=== PATIENT | male | born 1955 | race Caucasian/White ===

== ENCOUNTER 2017-04-28 15:35 | Emergency (ER) | payer OTHER ==
[2017-04-28] MEDS ORDERED: KETOROLAC TROMETHAMINE 60 MG/2 ML VIAL IM ONE (15:54)
[2017-04-28 15:55] VITALS: BP 140/80; PULSE 83; TEMP 98; BMI 33.5
[2017-04-28] MEDS ORDERED: KETOROLAC TROMETHAMINE 60 MG/2 ML VIAL ONE (15:58)
--- NOTE | 2017-04-28 16:42 | PDOC ---
History of Present Illness <Bette Rey - Last Filed: 04/28/17 16:40> - General History Source: Patient Exam Limitations: No Limitations - History of Present Illness Initial Comments: 04/28/17 16:45 The patient is a 61 year old male with a significant past medical history of diabetes, undetectable HEP-C, who presents to the ED s/p fall. Patient states he was walking on the sidewalk when he tripped and fell on his right side. Patient complains of sharp lower right sided rib pain. Patient states the pain is non-radiating. He states the pain worsens when taking a deep breath. He denies head trauma, back pain, neck pain. He denies fever, chills, nausea, vomiting, diarrhea. Patient smokes a pack of cigarettes a day. <Nehemiah Jeffrey - Last Filed: 04/28/17 16:46> - General Chief Complaint: Pain, Acute Stated Complaint: RIGHT RIB PAIN S/P FALL Time Seen by Provider: 04/28/17 15:48 Past History - Past Medical History Diabetes: Yes HTN: Yes Other medical history: HEPATITIS C - Psycho/Social/Smoking Cessation Hx Anxiety: No Suicidal Ideation: No Smoking History: Current every day smoker Have you smoked in the past 12 months: Yes Number of Cigarettes Smoked Daily: 20 Information on smoking cessation initiated: Yes 'Breaking Loose' booklet given: 04/28/17 Hx Alcohol Use: No Drug/Substance Use Hx: No Substance Use Type: None <Bette Rey - Last Filed: 04/28/17 16:40> <Nehemiah Jeffrey - Last Filed: 04/28/17 16:46> - Past Medical History Allergies/Adverse Reactions: Allergies Allergy/AdvReac Type Severity Reaction Status Date / Time No Known Allergies Allergy Unverified 04/28/17 15:37 Home Medications: Ambulatory Orders Insulin (Levemir) [Levemir Flexpen -] 46 units SQ DAILY 04/28/17 Insulin Aspart Prot/Insuln Asp [Novolog Mix 70-30 Vial] 4 units SQ TID 04/28/17 Lisinopril [Zestril] 40 mg PO DAILY 04/28/17 Metformin HCl [Glucophage] 1,000 mg PO BID 04/28/17 Review of Systems - Review of Systems Able to Perform ROS?: Yes Comments:: 04/28/17 16:45 GENERAL/CONSTITUTIONAL: No fever or chills. No weakness. HEAD, EYES, EARS, NOSE AND THROAT: No change in vision. No ear pain or discharge. No sore throat. CARDIOVASCULAR: No chest pain or shortness of breath. RESPIRATORY: No cough, wheezing, or hemoptysis. GASTROINTESTINAL: No nausea, vomiting, diarrhea or constipation. GENITOURINARY: No dysuria, frequency, or change in urination. MUSCULOSKELETAL: + right sided lower rib pain. No neck or back pain. SKIN: No rash NEUROLOGIC: No headache, vertigo, loss of consciousness, or change in strength/ sensation. ENDOCRINE: No increased thirst. No abnormal weight change. HEMATOLOGIC/LYMPHATIC: No anemia, easy bleeding, or history of blood clots. ALLERGIC/IMMUNOLOGIC: No hives or skin allergy. <Nehemiah Jeffrey - Last Filed: 04/28/17 16:46> *Physical Exam - Vital Signs Last Vital Signs Temp Pulse Resp BP Pulse Ox 98 F 83 18 140/80 97 04/28/17 15:36 04/28/17 15:36 04/28/17 15:36 04/28/17 15:36 04/28/17 15:36 <Bette Rey - Last Filed: 04/28/17 16:40> - Vital Signs Last Vital Signs Temp Pulse Resp BP Pulse Ox 98 F 83 18 140/80 97 04/28/17 15:36 04/28/17 15:36 04/28/17 15:36 04/28/17 15:36 04/28/17 15:36 - Physical Exam Comments: 04/28/17 16:45 GENERAL: Awake, alert, and fully oriented, in no acute distress HEAD: No signs of trauma EYES: PERRLA, EOMI, sclera anicteric, conjunctiva clear ENT: Auricles normal inspection, hearing grossly normal, nares patent, oropharynx clear without exudates. Moist mucosa NECK: Normal ROM, supple, no lymphadenopathy, JVD, or masses LUNGS: Breath sounds equal, clear to auscultation bilaterally. No wheezes, and no crackles HEART: Regular rate and rhythm, normal S1 and S2, no murmurs, rubs or gallops. RIB: Lower anterior right lower rib cage tenderness. No crepitus. No ecchymosis. ABDOMEN: Soft, nontender, normoactive bowel sounds. No guarding, no rebound. No masses EXTREMITIES: Normal range of motion, no edema. No clubbing or cyanosis. No cords, erythema, or tenderness NEUROLOGICAL: Cranial nerves II through XII grossly intact. Normal speech, normal gait SKIN: Warm, Dry, normal turgor, no rashes or lesions noted. <Nehemiah Jeffrey - Last Filed: 04/28/17 16:46> ED Treatment Course - RADIOLOGY Radiology Studies Ordered: Category Date Time Status CHEST PA & LAT [RAD] Stat Radiology 04/28/17 15:54 Ordered - Medications Given in the ED: ED Medications Discontinued Medications Generic Name Dose Route Start Last Admin Trade Name Freq PRN Reason Stop Dose Admin Ketorolac Tromethamine 60 mg 04/28/17 15:54 04/28/17 16:01 Toradol Injection - IM 04/28/17 15:55 60 mg ONCE ONE Administration <Bette Rey - Last Filed: 04/28/17 16:40> - Medications Given in the ED: ED Medications Discontinued Medications Generic Name Dose Route Start Last Admin Trade Name Freq PRN Reason Stop Dose Admin Ketorolac Tromethamine 60 mg 04/28/17 15:54 04/28/17 16:01 Toradol Injection - IM 04/28/17 15:55 60 mg ONCE ONE Administration <Nehemiah Jeffrey - Last Filed: 04/28/17 16:46> Medical Decision Making - Medical Decision Making 04/28/17 16:41 73-year-old male with history of diabetes and hep C presents to the emergency Department with complaints of right lower anterior rib pain status post mechanical fall earlier today. Differential diagnosis includes but is not limited to: Rib contusion, rib fracture, muscular strain/sprain. Plan: 1. Chest x-ray 2. Pain management 3. Observe and reevaluate 4. Chest x-ray is negative will discharge home, follow up with primary care physician and return to the emergency department if symptoms persist, worsen, or new symptoms arise. <Bette Rey - Last Filed: 04/28/17 16:40> *DC/Admit/Observation/Transfer - Discharge Dispostion Admit: No - Attestations Physician Attestion: 08/14/17 16:41 I, Dr. Bette Rey, attest that the scribes documentation that appears above has been prepared under my direction and personally reviewed by me in its entirety. I confirmed that the note above accurately reflects all work, treatment, procedures, and medical decision-making performed by me. <Bette Rey - Last Filed: 04/28/17 16:40> - Attestations Scribe Attestion: 04/28/17 16:46 Documentation prepared by Nehemiah Jeffrey, acting as medical doctor nuclear medicine for Bette Rey MD, MD. <Nehemiah Jeffrey - Last Filed: 04/28/17 16:46> Diagnosis at time of Disposition: Contusion of rib on right side - Discharge Dispostion Disposition: HOME Condition at time of disposition: Stable - Patient Instructions Printed Discharge Instructions: DI for Rib Contusion Additional Instructions: You may take ibuprofen 600-800 mg every 6-8 hours as needed for pain. Please follow-up with your primary care physician and return to the emergency department if your symptoms persist, worsen, or new symptoms arise.
== END 2017-04-28 17:28 | disposition home or self-care (01) ==
LOC: FER 15:35
PROC: 3E0233Z Introduction of Anti-inflammatory into Muscle, Percutaneous Approach (ICD-10-PCS; principal; 2017-04-28)
DX: S20.212A Contusion of left front wall of thorax, initial encounter (principal); W18.39XA Other fall on same level, initial encounter; Y93.01 Activity, walking, marching and hiking; Y92.480 Sidewalk as the place of occurrence of the external cause; E11.9 Type 2 diabetes mellitus without complications; F17.210 Nicotine dependence, cigarettes, uncomplicated; B19.20 Unspecified viral hepatitis C without hepatic coma
CPT/HCPCS: 71020-TC; 99282-25